=== PATIENT | female | born 1970 | race Caucasian/White ===

== ENCOUNTER 2023-08-08 21:49 | Emergency (ER) | payer OTHER ==
[~2023-08-08] VITALS: Ht 157.5 cm; Wt 54.5 kg
[2023-08-08 22:17] VITALS: BP 123/73; PULSE 91; RESP 14; TEMP 98.3; O2SAT 99
[2023-08-08] MEDS ORDERED: tetanus & diphtheria toxoid (Td) vaccine 0.5ml IMVAC ONE (22:30)
[2023-08-08] MEDS: TETanus/Pertussis (Acell)/Diphther VAC/PF (Tdap-Adult) 0.5ml syringe IMVAC ONE (22:32)
== END 2023-08-08 22:38 ==
LOC: EEVIPCON 21:50 → ER 21:50
DX: S40.022A Contusion of left upper arm, initial encounter (principal); S40.211A Abrasion of right shoulder, initial encounter; Y04.0XXA Assault by unarmed brawl or fight, initial encounter; Y93.89 Activity, other specified; Y92.89 Other specified places as the place of occurrence of the external cause; Y99.8 Other external cause status
CPT/HCPCS: 90471; 90715; 99283